=== PATIENT | female | born 1945 | race Caucasian/White ===

== ENCOUNTER → 2016-12-29 | Outpatient (CLI) | payer OTHER, BC | LOC: RAD 13:43 | DX: J44.9 Chronic obstructive pulmonary disease, unspecified (principal); R06.02 Shortness of breath ==

== ENCOUNTER 2017-01-03 13:13 | Inpatient (IN) | payer OTHER, BC ==
[~2017-01-03] VITALS: Ht 139.7 cm; Wt 63.5 kg
--- NOTE | ~2017-01-03 | HC ---
[facility] [address] [place] [address] CONSULTATION Name: OUMOU FIGUEROA Room #: 313-P [facility] IN M.R.#: [id number] Admission: 01/03/17 Attend Phys: Edvin Harris MD Discharge: 01/06/17 Date of : 47 Report #: [id number] THIS REPORT FOR: //name// CC: Jos Harris MD DATE OF SERVICE: 01/03/2017 REFERRING PROVIDER: Edvin Harris MD REASON FOR CONSULTATION: Shortness of breath, chest pain. HISTORY OF PRESENT ILLNESS: Our group was asked to see the patient in consultation while hospitalized at [facility]. Seen in ER room 2 at the request of Dr. Priyanka Guaman. A very pleasant 71-year-old woman with a past pulmonary history significant for tobacco use was an active smoker as well as COPD. She also has problems with systemic lupus erythematosus, chronic steroid therapy. She has been traveling back and forth between [place], [place] and sounds like portions of [place] for quite some time to be around family. Recently hospitalized in [place] for pneumonia several months ago. She does have also a past pulmonary history of pulmonary embolism several years ago and had discontinued Xarelto after 6 months of therapy. She presented to our office as a new consultation, December 29, seen by Dr. Vaughn and evaluated her COPD further as well as recommending further workup for possible pulmonary hypertension and pulmonary emboli given her history. She presented for ventilation perfusion scan earlier today and likely lower extremity venous Doppler; however, did not feel well and had not been sleeping well due to chest pain and shortness of breath over the last week, asked to go to the emergency department. They finished ventilation perfusion scan, sent to the emergency department for further evaluation. There she underwent a chest radiograph which revealed some findings suggestive of COPD, otherwise was clear. At that point ventilation perfusion scan had been completed showing high probability of PE. Currently, she is resting comfortably. Does require some supplemental oxygen, is having some chest pain and is somewhat somnolent. ALLERGIES: INCLUDE SULFA and FLUOROQUINOLONES. PAST MEDICAL HISTORY: 1. COPD, severity is severe based on spirometry results done December 29 which showed an FEV1 of 0.73 liters of 38% of predicted. 2. Chronic hypoxemic respiratory failure. 3. Hypothyroidism. 4. Lumbar spinal stenosis. 5. Severe osteoporosis. 6. Cervical spine disease status post cervical spine surgery. [address] [address] CONSULTATION Name: OUMOU FIGUEROA Room #: 313-P DIS IN .R.#: [id number] Admission: 01/03/17 Attend Phys: Edvin Harris MD Discharge: 01/06/17 Date of : 47 Report #: [id number] 7. Anxiety. 8. Chronic narcotic use. 9. Chronic systemic corticosteroid use. 10. Crohn's disease. 11. Systemic lupus erythematosus by patient report. 12. Depression. 13. Crohn's disease. SOCIAL HISTORY: The patient is an active smoker, smoking about half pack per day. Other records say ex-smoker. The patient states she is still smoking, although she is somewhat somnolent, no alcohol consumption. FAMILY HISTORY: Significant for mother who had legionella, father had coronary artery disease. REVIEW OF SYSTEMS: CONSTITUTIONAL: No fevers, chills, sweats, change in weight or appetite. ENT: Denies any upper respiratory congestion, rhinorrhea or dysphagia. CARDIOVASCULAR: Chest pain as described, continuous, heavy pressure in her chest without radiation. GASTROINTESTINAL: No nausea, vomiting, diarrhea, constipation or abdominal pain. GENITOURINARY: No dysuria, no frequency. INTEGUMENT: Denies any rash. MUSCULOSKELETAL: Chronic joint pains throughout including spinal pain in the back. PHYSICAL EXAMINATION: VITAL SIGNS: Afebrile, pulse 98, respiratory rate 18, blood pressure 158/99, oxygen saturation 94% on 2 liters. GENERAL: This is a cushingoid appearing elderly woman, somnolent, but arousable and conversant, no distress. ENT: Clear oropharynx, Mallampati 2 airway. NECK: Supple, no lymphadenopathy. LUNGS: Diminished, minimal left basilar crackles, no wheezes. CARDIOVASCULAR: Heart regular. No murmurs noted. ABDOMEN: Soft, nontender, no masses, no hepatosplenomegaly. INTEGUMENT: Reveal multiple areas of ecchymosis. EXTREMITIES: With trace lower extremity edema. PSYCHIATRIC: Mood and affect appropriate. LABORATORY DATA: White blood cell count 11.7, hemoglobin 14, hematocrit 44, platelet count 359. Sodium 142, potassium 4.3, chloride 103, bicarbonate 34, BUN 19, creatinine 0.6, glucose 203, proBNP 446, troponin less than 0.04. Coags are pending. [address] [address] CONSULTATION Name: OUMOU FIGUEROA Room #: 313-P [facility] IN M.R.#: [id number] Admission: 01/03/17 Attend Phys: Edvin Harris MD Discharge: 01/06/17 Date of : 47 Report #: [id number] IMPRESSION: 1. High probability ventilation perfusion scan consistent with venous thromboembolism most consistent with the patient's history of prior pulmonary embolism and history of frequent traveling. 2. Chronic obstructive pulmonary disease with probable acute exacerbation. 3. Mfpza-fm-gdblswi hypoxemic respiratory failure secondary to above. 4. Chronic systemic steroid use. 5. Systemic lupus erythematosus. 6. Probable pulmonary hypertension significant, so what is acute and/or chronic is unclear at this time. 7. Chronic pain. 8. Gastroesophageal reflux disease. 9. Hypertension. 10. Depression. 11. Hypothyroidism. SUGGESTIONS: 1. Check echo. 2. Check lower extremity venous Dopplers. 3. Anticoagulation. We will start with heparin, consider changing to oral anticoagulant therapy. 4. Pain control. 5. Critical care telemetry monitoring with continuous oximetry. 6. Further recommendations to follow. Thank you for requesting our suggestions. <ELECTRONICALLY SIGNED> By: George Uriarte MD 01/10/17 1453 1629 0123 George Uriarte MD /nt
--- NOTE | ~2017-01-03 | 2DMMODE ---
[facility] [address] [place] [address] 2 D/M-MODE ECHOCARDIOGRAM Name: OUMOU FIGUEROA Room #: 313-P ADM IN M.R.#: [id number] Admission: 01/03/17 Attend Phys: Tracy Story Discharge: Date of : 47 Date of Service: 01/04/17 1000 Report #: [id number] THIS REPORT FOR: //name// APPROVED REPORT Study performed: 01/04/2017 08:34:28 EXAM: Comprehensive 2D, Doppler, and color-flow Echocardiogram Patient Location: Echo lab Room #: 313 Blood Pressure: 130/66 mmHg HR: 97 bpm Other Information Study Quality: Fair Technically limited study due to lung disease. Indications Pulmonary Embolism RV function. Hx: COPD, DM, HTN 2D Dimensions RVDd: 28.20 mm LVEF(%): 58.85 (>50%) IVSd: 12.45 (7-11mm) LVOT Diam: 19.91 (18-24mm) LVDd: 44.28 mm PWd: 10.76 (7-11mm) Ascending Ao: 29.72 (22-36mm) LVDs: 30.57 (25-40mm) Aortic Root: 29.32 mm Ace's LVEF: 58.85 % Volumes Left Atrial Volume (Systole) Single Plane 4CH: 23.99 mL Single Plane 2CH: 23.73 mL LA ESV Index: 18.00 mL/m2 Aortic Valve AoV Peak Cyrus.: 1.26 m/s AO Peak Gr.: 6.32 mmHg LVOT Max P.09 mmHg LVOT Max V: 1.01 m/s INDRA Vmax: 2.50 cm2 [facility] [address] [place] [address] 2 D/M-MODE ECHOCARDIOGRAM Name: OUMOU FIGUEROA Room #: 313-P [facility] IN [facility].#: [id number] Admission: 01/03/17 Attend Phys: Tracy Story Discharge: Date of : 47 Date of Service: 01/04/17 1000 Report #: [id number] Mitral Valve E/A Ratio: 0.6 MV Decel. Time: 233.70 ms MV E Max Cyrus.: 0.63 m/s MV A Cyrus.: 1.13 m/s MV PHT: 67.77 ms IVRT: 96.89 ms Pulmonary Valve PV Peak Cyrus.: 0.87 m/s PV Peak Gr.: 3.03 mmHg Pulmonary Vein P Vein S: 67.8 m/s P Vein A: 50.79 m/s P Vein D: 40.0 m/s P Vein A Dur.: 103.8 msec Tricuspid Valve TR Peak Cyrus.: 2.22 m/s RAP Estimate: 5.00 mmHg TR Peak Gr.: 19.76 mmHg RVSP: 25.00 mmHg Left Ventricle The left ventricle is normal size. Mild concentric left ventricular hypertrophy. Left ventricular systolic function is normal. LVEF is 55%. Grade I - abnormal relaxation pattern. Right Ventricle Right ventricle is not well visualized but appears normal in size and fucntion. Atria The left atrium size is normal. The right atrium size is normal. Aortic Valve The aortic valve is not well visualized. No aortic regurgitation is present. There is no aortic valvular stenosis. Mitral Valve The mitral valve is mildly thickened. Trace mitral regurgitation. No evidence of mitral valve stenosis. Tricuspid Valve The tricuspid valve is normal in structure. There is trace tricuspid regurgitation. The right atrial pressure is estimated at 5 mmHg. Estimated PAP of 25mmHg. Pulmonic Valve [facility] [address] [id number] 2 D/M-MODE ECHOCARDIOGRAM Name: OUMOU FIGUEROA Room #: 313-P [facility] IN M.R.#: [id number] Admission: 01/03/17 Attend Phys: Tracy Story Discharge: Date of : 47 Date of Service: 01/04/17 1000 Report #: [id number] Pulmonic valve is not well visualized. Trace pulmonic regurgitation. Great Vessels The aortic root is normal in size. The ascending aorta is normal in size. IVC is normal in size and collapses >50% with inspiration. Pericardium There is no pericardial effusion. <Conclusion> The left ventricle is normal size. LVEF is 55%. Right ventricle is not well visualized but appears normal in size and fucntion. The aortic valve is not well visualized. No aortic regurgitation is present. The mitral valve is mildly thickened. Trace mitral regurgitation. There is trace tricuspid regurgitation. The right atrial pressure is estimated at 5 mmHg. Estimated PAP of 25mmHg. Pulmonic valve is not well visualized. Trace pulmonic regurgitation. <ELECTRONICALLY SIGNED> By: Bishnu Mabry MD 01/04/17 1000 1000 1000 Bishnu Mabry MD /INF
--- NOTE | ~2017-01-03 | H ---
[facility] [address] [place] [address] HISTORY AND PHYSICAL Name: OUMOU FIGUEROA Room #: 313-P ADM IN M.R.#: [id number] Admission: 01/03/17 Attend Phys: Edvin Harris MD Discharge: Date of : 47 Report #: [id number] THIS REPORT FOR: //name// CC: Edvin Harris DATE OF SERVICE: 01/03/2017 CHIEF COMPLAINT: Shortness of breath and chest pain. HISTORY OF PRESENT ILLNESS: The patient is a 71-year-old female who was admitted to the Emergency Room with complaints of shortness of breath. She said for the last couple of days, she has been more short of breath than usual and has had some intermittent chest pain. She denied any productive cough or fever or chills. She has had some recent travels between [place] and other [facility] including [place], [place] and [place]. In 2015 approximately, she was diagnosed with a pulmonary embolus at [facility] and was treated with Xarelto for [address] was unremarkable and Xarelto was discontinued. She had been doing okay until recently. She has other chronic medical issues that had been followed by in the past as well. PAST MEDICAL HISTORY: Severe COPD with FEV1 of 0.73 liters, chronic hypoxic respiratory failure, hypothyroidism, lumbar spinal stenosis, osteoporosis, cervical spine disease with previous surgery. She has had chronic low back pain with ablation procedure in the past. She reports a history of Crohn disease, systemic lupus and adrenal insufficiency for which she takes chronic prednisone. There is also a history of depression. There has been a new diagnosis of diabetes with recent A1c of 7.7. PAST SURGICAL HISTORY: As above. FAMILY HISTORY: Noncontributory. SOCIAL HISTORY: She has a [id number]-[id number] history of smoking. Denies chronic alcohol use. ALLERGIES: SULFA and QUINOLONES. MEDICATIONS: Xyzal for allergies, nystatin swish and swallow, Spiriva, Ventolin HFA, Coreg 3.125 mg b.i.d., hydrocodone, Lyrica, Topamax 25 mg, Effexor XR 150 mg, Advair, prednisone 20 mg, metformin 500 mg b.i.d., Levoxyl 75 mcg. REVIEW OF SYSTEMS: She denies headache, nausea, vomiting, diarrhea, constipation, dysuria, syncope or fall. PHYSICAL EXAMINATION: VITAL SIGNS: Stable. [facility] [address] [place] [address] HISTORY AND PHYSICAL Name: OUMOU FIGUEROA Room #: 313-P [facility] IN M.R.#: [id number] Admission: 01/03/17 Attend Phys: Edvin Harris MD Discharge: Date of : 47 Report #: [id number] GENERAL: She is awake and alert, in no distress. HEAD AND NECK: Unremarkable. LUNGS: Distant but clear. HEART: Regular. ABDOMEN: Soft, normoactive bowel sounds. EXTREMITIES: No edema. NEUROLOGIC: Cranial nerves intact. Speech is fluent. Reviewed electronic data. ASSESSMENT: 1. Pulmonary embolus. 2. Severe chronic obstructive pulmonary disease. 3. Pulmonary hypertension. 4. Diabetes type 2. 5. Adrenal insufficiency. 6. Lupus by history with recent lab markers in the office negative. 7. History of Crohn disease with previous GI workup at . PLAN: We will continue anticoagulation with Lovenox. I would then plan to transition her to Xarelto for outpatient treatment, as this is what she has used in the past. I will ask Dr. Adhikari to see her about the history of lupus even though recent markers at my office were negative. <ELECTRONICALLY SIGNED> By: Edvin Harris MD 01/04/17 1505 1043 1219 Edvin Harris MD /nt
--- NOTE | ~2017-01-03 | D ---
[facility] [address] [address] [place] [address] DISCHARGE SUMMARY Name: OUMOU FIGUEROA Room #: 313-P [facility] IN M.R.#: [id number] Admission: 01/03/17 Attend Phys: Edvin Harris MD Discharge: 01/06/17 Date of : 47 Report #: [id number] THIS REPORT FOR: //name// CC: Edvin Harris FINAL DIAGNOSES: 1. Pulmonary embolus. 2. Chronic obstructive pulmonary disease. HOSPITAL COURSE: The patient was admitted with shortness of breath. An outpatient V/Q scan showed probability of PE. She was treated with Lovenox and converted to Xarelto. Dr. Vaughn saw her as well for COPD. Steroids were added. Other home medications were continued. She had no other interval complication. Ultimately, the decision was she would likely need lifelong anticoagulation due to pulmonary emboli in the last several years. Venous Doppler ultrasound of the legs was negative. PHYSICAL EXAMINATION: GENERAL: On the day of discharge, she was resting comfortably in no distress. VITAL SIGNS: Stable. LUNGS: Clear. HEART: Regular. ABDOMEN: Soft, normoactive bowel sounds. EXTREMITIES: No edema. DISPOSITION: Will be discharged to home to resume all diet, activity and medications plus Xarelto 15 mg twice a day for 20 days, then 20 mg daily thereafter. <ELECTRONICALLY SIGNED> By: Edvin Harris MD 01/07/17 0835 0916 1045 Edvin Harris MD /keenan
--- NOTE | ~2017-01-03 | EKG ---
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 : 1945 Requested By: Xiang Red Order Number: [id number] MD: Delbert Bang Measurements Intervals Kiana Rate: 99 P: 44 TX: 136 QRS: 140 QRSD: 124 T: 36 QT: 384 QTc: 493 Interpretive Statements Sinus rhythm Probable left atrial enlargement RBBB and LPFB Borderline ST elevation, lateral leads Baseline wander in lead(s) III,aVF,V3,V4,V5,V6 No previous ECG available for comparison Electronically Signed On 01-03-2017 15:11:39 CDT by Delbert Bang [email or web address] <ELECTRONICALLY SIGNED> By: Delbert Bang MD 01/03/17 1511 132 26 Delbert Bang MD /JOHN
[2017-01-03 13:22] VITALS: BP 158/99
[2017-01-03 14:44] LABS: HEMATOCRIT 43.5 % (37.0-47.0); HEMOGLOBIN 13.9 gm/dL (12.0-15.0); MCH 28.8 pg (26.0-34.0); MCHC 31.9 g/dL (28.0-37.0); MCV 90.6 fL (80.0-100.0); PLATELET COUNT 359 thou/uL (150-400); RBC 4.81 mil/uL (4.20-5.00); WBC 11.7 thou/uL (4.0-11.0)
[2017-01-03 14:45] LABS: MANUAL DIFF YES
[2017-01-03 14:52] LABS: ANION GAP 5 mmol/L (7-16); BUN 19 mg/dL (7-18); CALCIUM 9.6 mg/dL (8.5-10.1); CHLORIDE 103 mmol/L (98-107); CO2 34 mmol/L (21-32); CREATININE 0.6 mg/dL (0.6-1.0); GLUCOSE 203 mg/dL (74-106); POTASSIUM 4.3 mmol/L (3.5-5.1); SODIUM 142 mmol/L (136-145)
[2017-01-03] MEDS ORDERED: SPIRIVA18 MCG INH (14:53)
[2017-01-03] MEDS ORDERED: LEVOTHYROXIN0.075 MG PO (14:53)
[2017-01-03] MEDS ORDERED: ADVAIR 500-501 EACH INH (14:54)
[2017-01-03] MEDS ORDERED: VENTOLIN HFA 1818 GM INH (14:54)
[2017-01-03] MEDS ORDERED: METFORMIN HCL500 MG PO (14:54)
[2017-01-03] MEDS ORDERED: TOPAMAX 25 MG T25 M1 PO (14:55)
[2017-01-03] MEDS ORDERED: PREDNISONE 10 M10 MG PO (14:55)
[2017-01-03] MEDS ORDERED: LYRICA 75 MG CA75 MG PO (14:55)
[2017-01-03] MEDS ORDERED: NORCO 10-325 T1 EACH PO (14:56)
[2017-01-03] MEDS ORDERED: LEVOCETIRIZINE D5 MG PO (14:56)
[2017-01-03] MEDS ORDERED: CARVEDILOL3.125 MG PO (14:56)
[2017-01-03] MEDS ORDERED: VENLAFAXIN75 MG/1 T2 PO (14:57)
[2017-01-03 15:04] LABS: NT-PRO BRAIN NAT PEPTIDE 446 pg/mL (<300); TROPONIN-I < 0.04 ng/mL (<0.04-0.07)
[2017-01-03 15:06] LABS: ABSOLUTE NEUTROPHILS 10.3 thou/uL (1.4-8.2); ANISOCYTOSIS 2+; TOTAL CELL COUNT 100
[2017-01-03 16:29] LABS: APTT 21.9 Seconds (24.5-32.8); PROTIME 9.8 Seconds (9.3-11.4)
[2017-01-03 18:50] VITALS: BP 140/92
[2017-01-03 18:54] VITALS: BP 158/99
[2017-01-04 01:18] VITALS: BP 120/72
[2017-01-04 04:53] VITALS: BP 130/66
[2017-01-04 07:13] LABS: HEMATOCRIT 46.2 % (37.0-47.0); HEMOGLOBIN 14.7 gm/dL (12.0-15.0); MCH 29.2 pg (26.0-34.0); MCHC 31.9 g/dL (28.0-37.0); MCV 91.5 fL (80.0-100.0); RBC 5.05 mil/uL (4.20-5.00); RDW 15.3 % (10.5-14.5); WBC 10.3 thou/uL (4.0-11.0)
[2017-01-04] MEDS ORDERED: NYSTATIN 1100000 U/M SW&SWALLOW (07:16)
[2017-01-04 08:00] VITALS: BP 128/72
[2017-01-04 15:30] VITALS: BP 128/64
[2017-01-04 20:00] VITALS: BP 127/69
[2017-01-05 04:00] VITALS: BP 147/92
[2017-01-05 08:43] VITALS: BP 117/73
[2017-01-05 16:22] VITALS: BP 131/84
[2017-01-05 19:52] VITALS: BP 131/67
[2017-01-06 04:57] VITALS: BP 138/71
[2017-01-06] MEDS ORDERED: XARELTO15 MG PO (09:18)
[2017-01-06] MEDS ORDERED: XARELTO20 MG PO (09:20)
[2017-01-06 09:28] VITALS: BP 121/71
[2017-01-06] MEDS ORDERED: PULMICORT0.5 MG/22 INH (12:43)
[2017-01-06] MEDS ORDERED: DUONEB 2.5-0.5 M3 ML INH (12:43)
[2017-01-06] MEDS ORDERED: PREDNISONE 10 M10 MG PO (12:43)
[2017-01-06] MEDS ORDERED: ALBUTEROL2.5 MG/31 INH (12:43)
== END 2017-01-06 16:30 | DRG 175 ==
LOC: ER 13:13 → 3N 15:55 → EROBS 15:55 → 3N 18:14
PROVIDERS: Emergency Medicine; Internal Medicine Pulmonary Disease
DX: I26.99 Other pulmonary embolism without acute cor pulmonale (principal); J96.21 Acute and chronic respiratory failure with hypoxia; F11.20 Opioid dependence, uncomplicated; K50.90 Crohn's disease, unspecified, without complications; G89.29 Other chronic pain; M54.9 Dorsalgia, unspecified; I27.2 Other secondary pulmonary hypertension; J44.9 Chronic obstructive pulmonary disease, unspecified; E03.9 Hypothyroidism, unspecified; M48.06 Spinal stenosis, lumbar region; M81.0 Age-related osteoporosis without current pathological fracture; F41.9 Anxiety disorder, unspecified; M32.9 Systemic lupus erythematosus, unspecified; F32.9 Major depressive disorder, single episode, unspecified; F17.210 Nicotine dependence, cigarettes, uncomplicated; K21.9 Gastro-esophageal reflux disease without esophagitis; E11.9 Type 2 diabetes mellitus without complications; Z79.899 Other long term (current) drug therapy; Z88.2 Allergy status to sulfonamides; Z79.52 Long term (current) use of systemic steroids; Z82.49 Family history of ischemic heart disease and other diseases of the circulatory system
CPT/HCPCS: 10096

== ENCOUNTER → 2017-01-03 | Outpatient (CLI) | payer OTHER, BC ==
[~2017-01-03] MED LIST: ADVAIR 500-501 EACH INH; CARVEDILOL3.125 MG PO; LEVOCETIRIZINE D5 MG PO; LEVOTHYROXIN0.075 MG PO; LYRICA 75 MG CA75 MG PO; METFORMIN HCL500 MG PO; NORCO 10-325 T1 EACH PO; NYSTATIN 1100000 U/M SW&SWALLOW; PREDNISONE 10 M10 MG PO; SPIRIVA18 MCG INH; TOPAMAX 25 MG T25 M1 PO; VENLAFAXIN75 MG/1 T2 PO; VENTOLIN HFA 1818 GM INH
== END ==
LOC: NUC 06:42
DX: I27.2 Other secondary pulmonary hypertension (principal); R06.00 Dyspnea, unspecified; R60.9 Edema, unspecified

== ENCOUNTER → 2017-02-03 | Outpatient (CLI) | payer OTHER, BC ==
[~2017-02-03] MED LIST changes: +ALBUTEROL2.5 MG/31 INH; +DUONEB 2.5-0.5 M3 ML INH; +PULMICORT0.5 MG/22 INH; +XARELTO15 MG PO; +XARELTO20 MG PO
== END ==
LOC: RAD 13:20
DX: R06.02 Shortness of breath (principal); R06.00 Dyspnea, unspecified

== ENCOUNTER → 2017-03-10 | Outpatient (CLI) | payer OTHER, BC | LOC: RAD 03-03 08:23 | DX: J44.9 Chronic obstructive pulmonary disease, unspecified (principal); I26.99 Other pulmonary embolism without acute cor pulmonale; R06.00 Dyspnea, unspecified ==

== ENCOUNTER 2017-03-22 18:42 | Emergency (ER) | payer OTHER, BC ==
[~2017-03-22] VITALS: Ht 139.7 cm; Wt 61.2 kg
--- NOTE | ~2017-03-22 | EKG ---
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 : 1945 Requested By: Jeison Ribeiro Order Number: [id number] MD: Agustín Bhandari Measurements Intervals [place] Rate: 107 P: -25 NC: 131 QRS: 155 QRSD: 128 T: 87 QT: 340 QTc: 454 Interpretive Statements Sinus tachycardia RBBB and LPFB Compared to ECG 01/03/2017 13:27:55 Premature ventricular complexes are now present Electronically Signed On 03-23-2017 18:20:40 CDT by Agustín Bhandari [email or web address] <ELECTRONICALLY SIGNED> By: Agustín Bhandari MD, [facility] 03/23/17 1820 26 26 Agustín Bhandari MD, FAC /EPI
[2017-03-22 20:21] LABS: ABG SAMPLE TYPE VENOUS; BE(vivo) 4.2 mmol/L (-2 to +3); HCO3 30.7 mmol/L (22.0-26.0); LACTATE 2.04 mmol/L (0.5-2.0); O2(CT) 15.8 mL/dL (15.0-23.0); PCO2 VENOUS 52.8 mmHg (41.0-51.0); PO2 VENOUS 42.3 mmHg (35.0-45.0); STICK SITE VENIPUNCTURE; sO2 VENOUS 76.3 % (65.0-85.0); tCO2 32.3 mmol/L (24.0-30.0)
[2017-03-22 20:23] LABS: ABSOLUTE NEUTROPHILS 10.5 thou/uL (1.4-8.2); BASOPHILS 0.5 % (0.0-2.0); HEMATOCRIT 44.3 % (37.0-47.0); HEMOGLOBIN 14.5 gm/dL (12.0-15.0); MCH 29.4 pg (26.0-34.0); MCHC 32.8 g/dL (28.0-37.0); MCV 89.7 fL (80.0-100.0); PLATELET COUNT 349 thou/uL (150-400); POLYS 78.5 % (36.0-66.0); RBC 4.93 mil/uL (4.20-5.00); RDW 14.1 % (10.5-14.5); WBC 13.4 thou/uL (4.0-11.0)
[2017-03-22 20:24] LABS: MANUAL DIFF NO
[2017-03-22 20:32] LABS: ANION GAP 5 mmol/L (7-16); BUN 23 mg/dL (7-18); CALCIUM 10.2 mg/dL (8.5-10.1); CHLORIDE 105 mmol/L (98-107); CO2 36 mmol/L (21-32); CREATININE 0.7 mg/dL (0.6-1.0); GLUCOSE 121 mg/dL (74-106); POTASSIUM 3.9 mmol/L (3.5-5.1); SODIUM 146 mmol/L (136-145)
[2017-03-22 20:37] LABS: APTT 22.4 Seconds (24.5-32.8); PROTIME 9.6 Seconds (9.3-11.4)
[2017-03-22 20:49] LABS: ALBUMIN 3.7 g/dL (3.4-5.0); ALKALINE PHOSPHATASE 104 U/L (46-116); CK-MB MASS 2.1 ng/mL (<0.5-3.6); MAGNESIUM 1.8 mg/dL (1.8-2.4); NT-PRO BRAIN NAT PEPTIDE 1109 pg/mL (<300); SGOT 22 U/L (15-37); SGPT 26 U/L (30-65); TOTAL BILIRUBIN 0.2 mg/dL (<0.1-1.0); TOTAL PROTEIN 7.1 g/dL (6.4-8.2); TROPONIN-I < 0.04 ng/mL (<0.04-0.07)
[2017-03-22] MEDS ORDERED: TESSALON PERLE100 MG PO (20:58)
[2017-03-22] MEDS ORDERED: ZPAK PO (20:58)
[2017-03-22] MEDS ORDERED: PERCOCET 7.5-31 EACH PO (21:22)
== END 2017-03-22 21:20 | disposition home or self-care (01) ==
LOC: ER 18:42
PROVIDERS: Emergency Medicine
DX: J44.1 Chronic obstructive pulmonary disease with (acute) exacerbation (principal); J20.9 Acute bronchitis, unspecified; S22.000A Wedge compression fracture of unspecified thoracic vertebra, initial encounter for closed fracture; G89.29 Other chronic pain; M06.9 Rheumatoid arthritis, unspecified; M81.0 Age-related osteoporosis without current pathological fracture; I27.0 Primary pulmonary hypertension; F17.210 Nicotine dependence, cigarettes, uncomplicated; Z88.1 Allergy status to other antibiotic agents; Z88.2 Allergy status to sulfonamides; X58.XXXA Exposure to other specified factors, initial encounter; Y93.89 Activity, other specified; Y92.89 Other specified places as the place of occurrence of the external cause; Y99.8 Other external cause status

== ENCOUNTER → 2017-05-19 | Outpatient (CLI) | payer OTHER, BC ==
[~2017-05-19] MED LIST changes: +PERCOCET 7.5-31 EACH PO; +TESSALON PERLE100 MG PO; +ZPAK PO
== END ==
LOC: NUC 11:57
DX: I77.819 Aortic ectasia, unspecified site (principal); R06.00 Dyspnea, unspecified

== ENCOUNTER 2018-06-08 06:43 | Inpatient (IN) | payer OTHER ==
[~2018-06-08] VITALS: Ht 139.7 cm; Wt 52.7 kg
--- NOTE | ~2018-06-08 | D ---
[facility] [address] [address] [address] DISCHARGE SUMMARY Name: OUMOU FIGUEROA Room #: 451-P [facility] IN M.R.#: [id number] Admission: 06/08/18 Attend Phys: Edvin Harris MD Discharge: 06/21/18 Date of : 47 Report #: [id number] THIS REPORT FOR: //name// CC: Edvin Harris DATE OF SERVICE: 06/21/2018 FINAL DIAGNOSES: 1. Chronic obstructive pulmonary disease exacerbation. 2. Acute bronchitis. 3. Chronic vertebral compression fractures of the thoracic spine. 4. Intractable back pain. 5. Cardiomyopathy. 6. Anemia of chronic disease. 7. Bipolar disorder with delusional features and jim. HOSPITAL COURSE: The patient was admitted with back pain and shortness of breath. She was treated for COPD exacerbation with nebulized treatments and empiric antibiotics. Her steroid dose was continued, prednisone 10 mg a day. She also has chronic back pain related to chronic multiple level thoracic vertebral compression fractures. Due to the multilevel involvement, I did not feel that vertebroplasty was indicated. Also, she has osteoporosis contributing to this, which would make pain relief from that procedure less likely and may increase risk of other fractures. Therefore, the plan was conservative medical treatment. We settled on a regimen of fentanyl patch 12 mcg every 3 days plus hydrocodone 10 mg every 4 hours as needed. Pulmonary status stabilized during her stay. She had no complications. Cardiomyopathy is a chronic issue with EF 30%. There were no signs of heart failure. This has been addressed at [facility] in the past. The other major issue during her stay was bipolar with jim and delusions. She was very paranoid and accusatory towards her family at admission, she was also manic at times trying to go down to the gift shop and spend $300 on items and at other times calling her family incessantly or sending text messages. Dr. Carr was consulted and with time and medical management with the use of Seroquel and Depakote, her mood improved. The accusatory, paranoid features diminished. Her tangential thoughts slowed and she was more coherent and calm. We had multiple discussions about her need for 24-hour care from her medical standpoint post discharge. Attempts were made to find a alf placement; however, over those days, she was taking into consideration voluntary psychiatric admission to stabilize her medicines. After multiple discussions with myself and Dr. Carr, she seemed interested and eager to pursue; therefore, she was transferred to [facility] for continued medical treatment of her bipolar disorder. DISPOSITION: She is being transferred to [facility]. She has [address] [address] DISCHARGE SUMMARY Name: OUMOU FIGUEROA Room #: 451-P [facility] IN M.R.#: [id number] Admission: 06/08/18 Attend Phys: Edvin Harris MD Discharge: 06/21/18 Date of : 47 Report #: [id number] been under the care of Dr. Carr. I signed all her transfer orders and medications. Upon discharge from [facility], she will need to pursue alf placement, followed by long-term care fdc placement. G <ELECTRONICALLY SIGNED> By: Edvin Harris MD 06/23/18 1110 1016 1330 Edvin Harris MD /nt
--- NOTE | ~2018-06-08 | H ---
[facility] [place] [address] HISTORY AND PHYSICAL Name: OUMOU FIGUEROA Room #: 451-P ADM IN M.R.#: [id number] Admission: 06/08/18 Attend Phys: Edvin Harris MD Discharge: Date of : 47 Report #: [id number] THIS REPORT FOR: //name// CC: Edvin Harris DATE OF SERVICE: 06/08/2018 CHIEF COMPLAINT: Back pain and shortness of breath. HISTORY OF PRESENT ILLNESS: The patient is a 73-year-old female with multiple medical problems, came to the Emergency Room with back pain and shortness of breath. She has significant osteoporotic vertebral compression fractures, which have given her significant amount of pain. She has been seen by the [facility] in the past and has had ablation procedures for radicular type pain related to lumbar stenosis. Now, she is complaining of pain in the mid thoracic area and around the ribs with deep breath or cough. She has been hospitalized twice recently, once at several weeks back. There, they treated pulmonary situation and psychiatric situation, but she apparently left [facility] after about a week stay. She then was hospitalized at [facility] for almost 2 weeks. She was placed on Zyprexa for some delusional type symptoms with a diagnosis of bipolar. She had previously been on hospice related to her severe COPD and cardiomyopathy with ejection fraction of 30%, but she revoked that treatment when she was entered into . I spoke to her and her son for an hour in the office 2 days ago about long-term care planning, need for assistance and life expectancy issues; however, she says her pain has increased, and she does not have enough help at home and has come to the hospital. PAST MEDICAL HISTORY: COPD, chronic vertebral compression fractures. Cervical spinal stenosis with decompression surgery several years ago, lumbar spinal stenosis, remote surgery, chronic lumbar radicular pain syndrome. Cardiomyopathy, EF 30%. Diabetes type 2. She had a pulmonary embolus in 2014, treated for a year and then medication was discontinued due to excessive bleeding. Bipolar disorder, hypothyroidism. She gives a history of adrenal insufficiency. She has been steroid dependent for 10 years or longer. PAST SURGICAL HISTORY: Unknown. FAMILY HISTORY: Noncontributory. SOCIAL HISTORY: She is . She was living with her son in [place]. She has a daughter nearby. 44-myux-nthr history of smoking. She says she quit a couple of years ago. ALLERGIES: SULFA, QUINOLONES. MEDICATIONS: Zyrtec, Voltaren gel, albuterol nebulizer. Zyprexa 2.[address] [address] HISTORY AND PHYSICAL Name: OUMOU FIGUEROA Room #: [facility] IN M.R.#: [id number] Admission: 06/08/18 Attend Phys: Edvin Harris MD Discharge: Date of : 47 Report #: [id number] morning and 5 mg at bedtime. Synthroid 75. Gabapentin 600 b.i.d., hydrocodone 10 mg q.4 hours. Aspirin, glyburide 10 mg, isosorbide ER 30 mg, Lasix 20 mg, Spiriva, Coreg 6.25 mg b.i.d., prednisone 15 mg, Stiolto inhaler, Protonix. REVIEW OF SYSTEMS: She denies headache, chest pain, abdominal pain, nausea, vomiting, diarrhea, constipation, dysuria, syncope. OBJECTIVE: VITAL SIGNS: Temperature 36.6, pulse 96, respirations 22, blood pressure 114/43, O2 sat 100% on 2 liters. GENERAL: She is awake and alert, resting in bed in no distress. HEAD AND NECK: Unremarkable. LUNGS: Clear with a coarse nonproductive cough. HEART: Regular. ABDOMEN: Protuberant, soft, normoactive bowel sounds. EXTREMITIES: No edema. She has muscle atrophy throughout. NEUROLOGIC: She is pleasant, but somewhat lacking insight into her current illness and the plan of care. She recognizes me, knows she is at [facility] [place]. LABORATORY DATA: Reviewed. ASSESSMENT: 1. Chronic obstructive pulmonary disease exacerbation. 2. Chronic vertebral compression fractures. 3. Chronic pain syndrome. 4. Lumbar stenosis with radiculopathy. 5. Cervical stenosis with remote history of decompression. 6. Bipolar disorder with delusions. 7. Steroid dependency. 8. Senile debility. 9. Hypothyroidism. 10. Cardiomyopathy, ejection fraction 30%. PLAN: She is admitted for pulmonary treatment with nebulizers and antibiotics for now and a followup chest x-ray. In regards to the back pain, these are chronic issues, and I do not see her a candidate for any invasive treatment. This will be treated conservatively with hydrocodone and morphine for breakthrough pain. She has not tolerated fentanyl patch or oxycodone in the past. I also tried to simplify her medication regimen. I have asked the psychiatrist to see her to reevaluate treatment and maybe, follow up on her stay from [place]. She still has some racing random thoughts and is lacking insight into how she needs to be cared for in her medical issues. I also spoke to her at length at the bedside regarding code status. She agreed do not resuscitate is appropriate given that she would not survive CPR with such extensive osteoporosis and likely face a traumatic chest or rib injury with chest compressions. Also, she would not survive ventilator care, and she recognizes [address] [place] [address] HISTORY AND PHYSICAL Name: OUMOU FIGUEROA Room #: 451-P ADM IN M.R.#: [id number] Admission: 06/08/18 Attend Phys: Edvin Harris MD Discharge: Date of : 47 Report #: [id number] her issues and is understandable to do not resuscitate status. Lovenox for DVT prophylaxis. Social work will help with placement to detention and then long-term care. <ELECTRONICALLY SIGNED> By: Edvin Harris MD 06/12/18 1306 [id number] Edvin Harris MD /nt
--- NOTE | ~2018-06-08 | EKG ---
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 VALENZUELA : 1945 Requested By: Edvin Harris Order Number: [id number] MD: Agustín Bhandari Measurements Intervals [place] Rate: 86 P: -28 [place]: 118 QRS: -53 QRSD: 131 T: 64 QT: 389 QTc: 466 Interpretive Statements Sinus rhythm Atrial premature complexes in couplets Borderline short [place] interval RBBB Compared to ECG 03/22/2017 19:27:20 Atrial premature complex(es) now present PVCs no longer present Sinus tachycardia no longer present Electronically Signed On 06-19-2018 8:51:42 CDT by Agustín Bhandari [email or web address] <ELECTRONICALLY SIGNED> By: Agustín Bhandari MD, [facility] 06/19/18 0851 [id number] Agustín Bhandari MD, [facility] /EPI
[2018-06-08 07:31] LABS: RDW 16.3 % (10.5-14.5)
[2018-06-08 07:33] LABS: HEMATOCRIT 34.6 % (37.0-47.0); HEMOGLOBIN 11.1 gm/dL (12.0-15.0); MCV 84.3 fL (80.0-100.0); PLATELET COUNT 441 thou/uL (150-400); WBC 13.8 thou/uL (4.0-11.0)
[2018-06-08 07:37] LABS: CALCIUM 9.3 mg/dL (8.5-10.1); CREATININE 0.6 mg/dL (0.6-1.0)
[2018-06-08 07:40] LABS: POTASSIUM 4.2 mmol/L (3.5-5.1)
[2018-06-08 08:03] LABS: URINE BILIRUBIN NEGATIVE (Negative); URINE BLOOD NEGATIVE (Negative); URINE CLARITY CLEAR; URINE COLOR YELLOW; URINE GLUCOSE-RANDOM* NEGATIVE (Negative); URINE KETONES NEGATIVE (Negative); URINE LEUKOCYTES-REFLEX TRACE (Negative); URINE NITRITE-REFLEX NEGATIVE (Negative); URINE PROTEIN (DIPSTICK) TRACE (Negative); URINE SPECIFIC GRAVITY >= 1.030 (1.005-1.035); URINE UROBILINOGEN 0.2 E.U./dl (0.2-1.0)
[2018-06-08 08:39] LABS: ABSOLUTE NEUTROPHILS 11.3 thou/uL (1.4-8.2); ANISOCYTOSIS 1+
[2018-06-08 09:22] VITALS: BP 114/43
[2018-06-08 10:02] VITALS: BP 114/63
[2018-06-08 10:23] VITALS: BP 137/82
[2018-06-08 12:31] VITALS: BP 109/77
[2018-06-08 18:56] VITALS: BP 121/67
[2018-06-09 05:07] VITALS: BP 137/66
[2018-06-09 05:33] LABS: HEMATOCRIT 35.6 % (37.0-47.0); HEMOGLOBIN 10.8 gm/dL (12.0-15.0); MCH 25.9 pg (26.0-34.0); MCHC 30.3 g/dL (28.0-37.0); MCV 85.4 fL (80.0-100.0); RBC 4.17 mil/uL (4.20-5.00); RDW 16.1 % (10.5-14.5); WBC 9.6 thou/uL (4.0-11.0)
[2018-06-09 05:48] LABS: CREATININE 0.4 mg/dL (0.6-1.0); POTASSIUM 4.2 mmol/L (3.5-5.1)
[2018-06-09 07:43] VITALS: BP 145/59
[2018-06-09 07:50] VITALS: BP 121/67
[2018-06-09 16:01] VITALS: BP 126/75
[2018-06-09 20:07] VITALS: BP 123/101
[2018-06-10 07:28] VITALS: BP 144/84
[2018-06-10 13:25] VITALS: BP 105/56
[2018-06-10 19:04] VITALS: BP 141/54
[2018-06-11 03:45] VITALS: BP 131/59
[2018-06-11 07:18] VITALS: BP 148/65
[2018-06-11 14:53] VITALS: BP 111/76
[2018-06-11 19:28] VITALS: BP 131/63
[2018-06-12 04:01] VITALS: BP 117/65
[2018-06-12 08:00] VITALS: BP 111/54
[2018-06-12 15:00] VITALS: BP 112/67
[2018-06-12 19:27] VITALS: BP 124/50
[2018-06-13 01:03] VITALS: BP 124/50
[2018-06-13 03:08] VITALS: BP 107/39
[2018-06-13 06:10] LABS: HEMATOCRIT 32.9 % (37.0-47.0); HEMOGLOBIN 10.4 gm/dL (12.0-15.0); MCH 26.7 pg (26.0-34.0); MCHC 31.5 g/dL (28.0-37.0); MCV 84.7 fL (80.0-100.0); RBC 3.88 mil/uL (4.20-5.00); RDW 15.8 % (10.5-14.5)
[2018-06-13 06:24] LABS: CALCIUM 8.8 mg/dL (8.5-10.1); CREATININE 0.4 mg/dL (0.6-1.0); POTASSIUM 4.5 mmol/L (3.5-5.1)
[2018-06-13 07:28] VITALS: BP 150/62
[2018-06-13 15:15] VITALS: BP 132/71
[2018-06-13 19:42] VITALS: BP 104/50
[2018-06-14 08:00] VITALS: BP 129/68
[2018-06-14 13:49] VITALS: BP 112/73
[2018-06-14 19:14] VITALS: BP 108/68
[2018-06-14 22:38] VITALS: BP 118/73
[2018-06-15 02:50] VITALS: BP 131/70
[2018-06-15 07:13] VITALS: BP 109/50
[2018-06-15 14:11] VITALS: BP 137/71
[2018-06-15 19:19] VITALS: BP 119/67
[2018-06-16 04:46] VITALS: BP 137/82
[2018-06-16 04:50] VITALS: BP 144/75
[2018-06-16 06:14] LABS: HEMATOCRIT 31.8 % (37.0-47.0); HEMOGLOBIN 10.2 gm/dL (12.0-15.0); MCV 84.4 fL (80.0-100.0); RBC 3.77 mil/uL (4.20-5.00); RDW 15.9 % (10.5-14.5)
[2018-06-16 06:35] LABS: CREATININE 0.5 mg/dL (0.6-1.0); POTASSIUM 4.5 mmol/L (3.5-5.1)
[2018-06-16 07:58] VITALS: BP 125/100
[2018-06-16] MEDS ORDERED: NORCO 10-325 T1 EACH PO (11:23)
[2018-06-16] MEDS ORDERED: DURAGESIC1 EACH TRANSDERM (11:23)
[2018-06-16] MEDS ORDERED: NYSTATIN100000 UNI SW&SWALLOW (11:23)
[2018-06-16] MEDS ORDERED: CALCITONIN-SAL3.7 ML NASAL (11:23)
[2018-06-16] MEDS ORDERED: MILK OF MA2400 MG/10 PO (11:24)
[2018-06-16] MEDS ORDERED: MAG-AL PLUS SUS30 ML PO (11:24)
[2018-06-16] MEDS ORDERED: PROTONIX 20 MG20 M1 PO (11:24)
[2018-06-16] MEDS ORDERED: PREDNISONE 10 M10 MG PO (11:24)
[2018-06-16] MEDS ORDERED: MUCINEX600 MG PO (11:24)
[2018-06-16] MEDS ORDERED: LASIX 20 MG TAB20 MG PO (11:24)
[2018-06-16] MEDS ORDERED: SENNA PLUS TAB1 EACH PO (11:24)
[2018-06-16] MEDS ORDERED: ZYPREXA 5 MG TAB5 M1 PO ×3 (11:25)
[2018-06-16] MEDS ORDERED: IMDUR 30 MG TAB30 M1 PO (11:25)
[2018-06-16] MEDS ORDERED: OLANZAPINE ODT5 MG PO (11:25)
[2018-06-16] MEDS ORDERED: TRAZODONE HCL50 MG PO (11:25)
[2018-06-16] MEDS ORDERED: CEFUROXIME500 MG PO (11:26)
[2018-06-16 15:20] VITALS: BP 102/43
[2018-06-16 16:56] VITALS: BP 138/59
[2018-06-16 20:06] VITALS: BP 102/44
[2018-06-17 06:15] VITALS: BP 130/64
[2018-06-17 07:45] VITALS: BP 100/62
[2018-06-17 13:35] VITALS: BP 120/93
[2018-06-17 18:52] VITALS: BP 111/67
[2018-06-17 22:41] VITALS: BP 111/67
[2018-06-18 02:56] VITALS: BP 120/54
[2018-06-18 07:18] VITALS: BP 119/68
[2018-06-18 14:45] VITALS: BP 142/80
[2018-06-18 19:24] VITALS: BP 116/78
[2018-06-19 00:47] VITALS: BP 116/78
[2018-06-19 08:00] VITALS: BP 134/66
[2018-06-19 15:00] VITALS: BP 111/57
[2018-06-19 19:28] VITALS: BP 105/56
[2018-06-20 05:26] VITALS: BP 138/65
[2018-06-20 06:15] LABS: HEMATOCRIT 31.6 % (37.0-47.0); HEMOGLOBIN 10.1 gm/dL (12.0-15.0); MCH 26.9 pg (26.0-34.0); RBC 3.76 mil/uL (4.20-5.00); WBC 8.8 thou/uL (4.0-11.0)
[2018-06-20 06:29] LABS: CREATININE 0.6 mg/dL (0.6-1.0); POTASSIUM 4.2 mmol/L (3.5-5.1)
[2018-06-20 07:05] VITALS: BP 125/39
[2018-06-20 18:09] VITALS: BP 120/64
[2018-06-20 19:14] VITALS: BP 118/67
[2018-06-21 03:54] VITALS: BP 111/49
[2018-06-21 06:23] VITALS: BP 104/42
[2018-06-21] MEDS ORDERED: DEPAKOTE ER250 MG PO (12:24)
[2018-06-21] MEDS ORDERED: ZYPREXA 5 MG TAB5 M1 PO (12:24)
[2018-06-21 17:47] VITALS: BP 125/51
== END 2018-06-21 19:04 | DRG 543 ==
LOC: ER 06:43 → 4W 09:09 → EROBS 09:09 → 4W 09:54
PROVIDERS: Emergency Medicine; Internal Medicine Geriatric Medicine
DX: M48.54XA Collapsed vertebra, not elsewhere classified, thoracic region, initial encounter for fracture (principal); F31.11 Bipolar disorder, current episode manic without psychotic features, mild; I42.9 Cardiomyopathy, unspecified; J44.1 Chronic obstructive pulmonary disease with (acute) exacerbation; Z66 Do not resuscitate; M06.9 Rheumatoid arthritis, unspecified; G89.4 Chronic pain syndrome; J20.9 Acute bronchitis, unspecified; D63.8 Anemia in other chronic diseases classified elsewhere; F22 Delusional disorders; E03.9 Hypothyroidism, unspecified; M54.16 Radiculopathy, lumbar region; Z79.51 Long term (current) use of inhaled steroids; Z86.711 Personal history of pulmonary embolism; Z79.82 Long term (current) use of aspirin; Z79.899 Other long term (current) drug therapy; Z88.2 Allergy status to sulfonamides; Z79.52 Long term (current) use of systemic steroids; Z79.1 Long term (current) use of non-steroidal anti-inflammatories (NSAID); Z88.8 Allergy status to other drugs, medicaments and biological substances; Z28.21 Immunization not carried out because of patient refusal; Z87.891 Personal history of nicotine dependence
CPT/HCPCS: 10040; 10047